=== PATIENT | female | born 1940 | race Caucasian/White ===

== ENCOUNTER 2019-11-10 12:00 | Inpatient (IN) | payer OTHER ==
[~2019-11-10] VITALS: Ht 157.5 cm; Wt 74.7 kg
[2019-11-10 13:04] LABS: BASOPHILS % (AUTO) 0.8 % (0.0-5.0); EOSINOPHILS % (AUTO) 3.1 % (0.0-8.0); HEMATOCRIT 40.2 % (36-48); MEAN CORPUSCULAR HEMOGLOBIN 30.6 pg (27.0-33.0); MEAN CORPUSCULAR HGB CONC 33.3 g/dL (32.0-36.0); MEAN CORPUSCULAR VOLUME 91.8 fL (79-99); MONOCYTES % (AUTO) 7.8 % (3.0-13.0); NEUTROPHILS % (AUTO) 67.9 % (40.0-77.0); PLATELET COUNT (AUTO) 290 K/uL (130-400); RED BLOOD CELL COUNT(AUTO) 4.38 MIL/uL (4.00-5.50); RED CELL DISTRIBUTION WIDTH 12.7 % (11.0-15.5); WHITE BLOOD COUNT (AUTO) 7.8 K/uL (4.8-10.8)
[2019-11-10 13:55] LABS: CREATININE 0.7 mg/dL (0.5-1.5); POTASSIUM 4.7 mmol/L (3.5-5.1)
[2019-11-17] MEDS ORDERED: ASPI-556 PO (09:47)
[2019-11-17] MEDS ORDERED: LOSA50TA64 PO (09:47)
[2019-11-17] MEDS ORDERED: ZINC50TA64 PO (09:47)
[2019-11-17] MEDS ORDERED: OMEP20TA25 PO (09:47)
[2019-11-17] MEDS ORDERED: TRAM50TA4 PO (09:47)
[2019-11-17] MEDS ORDERED: ESCI10TA54 PO (09:47)
[2019-11-17] MEDS ORDERED: TIOT4MIS3 IH (09:47)
[2019-11-17] MEDS ORDERED: LEVO25TA54 PO (09:47)
[2019-11-17] MEDS ORDERED: ASCO100031 PO (09:47)
[2019-11-18] VITALS (23 sets, daily range): BP systolic 80–130; BP diastolic 42–93
--- NOTE | 2019-11-18 06:15 | NUR ---
preop pt arrived via w/c. pt in no distress at this time. pt has some dry lesions to arms. pt oriented to call light and room. will continue to monitor pt.
[2019-11-18] MEDS ORDERED: LACTATED RINGERS 1000ML 1,000 ML IV ONE (06:17)
[2019-11-18] MEDS ORDERED: DURAMORPH PF1 MG/ML 10ML AMP IV ONE (06:49)
[2019-11-18] MEDS ORDERED: CEFAZOLIN SODIUM 1 GM VIAL ONE ×3 (06:49→11:41)
[2019-11-18] MEDS ORDERED: BUPIVACAINE/EPI/PF 0.25% 30ML VIAL IJ ONE (06:49)
[2019-11-18] MEDS ORDERED: THROMBIN-JMI 20000 UNIT KIT TP ONE (06:50)
[2019-11-18] MEDS ORDERED: LIDOCAINE PF 2% 5ML ABBOJECT ONE (06:54)
[2019-11-18] MEDS ORDERED: DEXAMETHASONE SOD PHOSPHATE 10MG/ML 1ML VIAL ONE ×2 (06:55→06:57)
[2019-11-18] MEDS ORDERED: MIDAZOLAM HCL 1 MG/ML 2ML VIAL ONE (06:55)
[2019-11-18] MEDS ORDERED: PROPOFOL 10 MG/ML 20ML VIAL IV ONE (06:55)
[2019-11-18] MEDS ORDERED: GLYCOPYRROLATE 1 MG/5 ML SYRINGE ONE (06:55)
[2019-11-18] MEDS ORDERED: NEOSTIGMINE 5MG/5ML SYR IV ONE (06:55)
[2019-11-18] MEDS ORDERED: FENTANYL CITRATE PF 50 MCG/1 ML 2ML VIAL ONE ×2 (06:56→09:42)
[2019-11-18] MEDS ORDERED: ONDANSETRON HCL 4 MG/2 ML VIAL ONE (06:56)
[2019-11-18] MEDS ORDERED: ROCURONIUM 10MG/1ML SYR 10 MG/ML ML ONE ×2 (06:56→09:10)
[2019-11-18] MEDS: CEFAZOLIN SODIUM 1 GM VIAL ONE ×2 (07:23→07:50)
[2019-11-18] MEDS ORDERED: EPHEDRINE SULFATE 50 MG/ML AMPULE ONE (07:51)
[2019-11-18] MEDS ORDERED: PHENYLEPHRINE HCL 10 MG/ML 1ML VIAL IV ONE (08:17)
[2019-11-18] MEDS ORDERED: SODIUM CHLORIDE 0.9% 10 ML VIAL ONE (10:47)
[2019-11-18] MEDS ORDERED: SODIUM CHLORIDE 0.9% 10 ML VIAL IVP PRN (12:00)
[2019-11-18] MEDS: DEXAMETHASONE SOD PHOSPHATE 4 MG/ML 1ML VIAL IVP SCH ×3 (12:00→23:59)
[2019-11-18] MEDS ORDERED: PROMETHAZINE HCL 25 MG/ML 1ML AMPULE IM PRN (12:00)
[2019-11-18] MEDS ORDERED: TRAMADOL HCL 50 MG TABLET PO PRN (12:00)
[2019-11-18] MEDS ORDERED: MORPHINE SULFATE 2 MG/ML 1ML SYG IVP PRN (12:00)
[2019-11-18] MEDS: LACTATED RINGERS 1000ML 1,000 ML IV SCH ×2 (13:56→18:39)
--- NOTE | 2019-11-18 16:22 | NUR ---
NOTIFIED RODY/DR. BURROUGHS OF POST OP BP SEE V/S RECORDED. PT ASYMPTOMATIC DENYING ANY DIZZINESS/DISCOMFORT. DENIED ANY PAIN/DISCOMFORT. ORDERS TO CONSULT HOSPITALIST IF NEEDED. AT 1640, DAUGHTER CAME OUT OF ROOM AND REPORTED PT C/O SOB. IN TO ASSESS PT. PT REPORTS SUDDEN LACK OF ENERGY. AC=448/71 HR=82. O2 SAT=99% W 02@2L/NC. RESP EVEN, UNLABORED. CONSULTED WITH HOSPITALIST. DR. MANSFIELD IN TO SEE PATIENT AND BP=93/63 WITH NEW ORDERS TO BOLUS. WILL CONTINUE TO MONITOR.
--- NOTE | 2019-11-18 18:00 | NUR ---
POST 500ML BOLUS BP=90/71 HR=65 WILL CONTINUE THE OTHER 500ML BOLUS PER MD ORDERS.
[2019-11-18] MEDS ORDERED: SODIUM CHLORIDE 0.9% 500ML 500 ML IV SCH ×2 (18:15→18:30)
--- NOTE | 2019-11-18 18:30 | NUR ---
BP=90/61 CONTINUED IV FLUIDS ASYMPTOMATIC. WILL CONTINUE TO MONITOR.
--- NOTE | 2019-11-18 19:15 | NUR ---
REPORT RECEIVED BEDSIDE REPORT FROM JADA BUSTILLOS. PT DENIES ANY PAINS AT THIS TIME. NEUROVASCULAR ASSESSMENT CONTINUED, WNL. WILL CONTINUE TO MONITOR. Addendum: 11/19/19 at 0040 by RADHA MCBRIDE RN RN Amended: Links added.
--- NOTE | 2019-11-18 19:45 | NUR ---
MEDS SHIFT ASSESSMENT DONE, PLEASE REFER TO CHART. PT CLAIMS OF NAUSEA BUT NO EMESIS. ICE CHIPS PROVIDED. MEDICATED WITH PHENERGAN IM. RE-POSITIONED COMFORTABLY IN BED WITH HOB ELEVATED. WILL RE-ASSESS PT. Addendum: 11/19/19 at 0057 by RADHA MCBRIDE RN RN Amended: Links added.
[2019-11-18] MEDS ORDERED: CEFAZOLIN SODIUM 1 GM VIAL IVP SCH (20:00)
[2019-11-18] MEDS ORDERED: NON-FORMULARY MEDICATION 1 EACH (Omeprazole 20 MG) PO SCH (21:00)
--- NOTE | 2019-11-18 21:00 | NUR ---
RE-ASSESS PT CLAIMS NAUSEA HAD ALREADY SUBSIDED. BP STILL WITH SBP ON THE 90'S BUT PT IS ASYMPTOMATIC. WILL CONTINUE TO MONITOR.
--- NOTE | 2019-11-19 02:00 | NUR ---
ROUNDS PT RESTING WELL, FAIRLY ASLEEP. NO DISTRESS NOTED. KEPT RESTED AND COMFORTABLE. CALL LIGHT WITHIN REACH. WILL MONITOR PT.
[2019-11-19 03:00] VITALS: BP 95/61
--- NOTE | 2019-11-19 04:05 | NUR ---
PAIN PT COMPLAINTS OF POST OP PAINS. MEDICATED WITH NORCO PO. RE-POSITIONED IN BED. WILL RE-ASSESS PT. Addendum: 11/19/19 at 0417 by RADHA MCBRIDE RN RN Amended: Links added.
[2019-11-19] MEDS: HYDROCODONE/ACETAMINOPHEN 5/325 MG TAB PO PRN ×2 (04:08→09:04)
--- NOTE | 2019-11-19 05:10 | NUR ---
D/C SALINE LOCKED PT'S IVF. TURNED OFF O2. DISCONTINUED F/C WITH CATHETER INTACT. INFORMED PT THAT SHE WILL BE WALKED ALREADY. PCP ASKED TO ACCOMPANY PT.
[2019-11-19] MEDS: DEXAMETHASONE SOD PHOSPHATE 4 MG/ML 1ML VIAL IVP SCH ×2 (05:38→11:21)
--- NOTE | 2019-11-19 05:45 | NUR ---
WALK PT ALREADY WALKED IN THE HALLWAY, TOLERATED ACTIVITY WELL. JUST CLAIMS OF MINIMAL SX INCISION PAIN WITH WALKING. ASSISTED BACK IN ROOM THEN DUE MEDS ADMINISTERED. LEFT SITTING DOWN IN CHAIR FOR NOW. CALL LIGHT WITHIN REACH. FOR MORE CARE.
[2019-11-19] MEDS ORDERED: LEVOTHYROXINE 25 MCG TABLET PO SCH (06:30)
--- NOTE | 2019-11-19 06:41 | NUR ---
WALK PT WALKED IN THE HALLWAY. TOLERATED ACTIVITY WITH MINIMAL HELP. CLAIM SOF MILD POST OP PAINS. ASSISTED BACK TO ROOM AND LET SIT DOWN IN THE CHAIR TO WAIT FOR BREAKFAST. FOR MORE CARE.
[2019-11-19 07:33] VITALS: BP 94/56
[2019-11-19] MEDS ORDERED: NON-FORMULARY MEDICATION 1 EACH (Ascorbic Acid (Vitamin C) 1,000 MG) PO SCH (09:00)
[2019-11-19] MEDS ORDERED: LOSARTAN 50 MG TABLET PO SCH (09:00)
[2019-11-19] MEDS ORDERED: OLODATEROL IH SCH (09:00)
[2019-11-19] MEDS ORDERED: NON-FORMULARY MEDICATION 1 EACH (Escitalopram Oxalate 10 MG) PO SCH (09:00)
[2019-11-19] MEDS ORDERED: [UNRECOGNIZED DRUG - OTHER] IH SCH (09:00)
[2019-11-19] MEDS ORDERED: PANTOPRAZOLE SODIUM 40 MG TABLET.DR PO SCH (09:00)
[2019-11-19] MEDS ORDERED: TIOTROPIUM BR IH SCH (09:00)
[2019-11-19] MEDS ORDERED: ESCITALOPRAM 10MG PO SCH (09:00)
[2019-11-19] MEDS ORDERED: ASCORBIC ACID 500 MG TAB PO SCH (09:00)
[2019-11-19] MEDS ORDERED: TIOTROPIUM IH SCH (09:00)
[2019-11-19] MEDS ORDERED: ZINC SULFATE 220 CAPSULE PO SCH (09:00)
[2019-11-19] MEDS ORDERED: OLODATEROL HCL IH SCH (09:00)
[2019-11-19] MEDS ORDERED: ZINC AMINO ACID CHELATE PO SCH (09:00)
[2019-11-19] MEDS ORDERED: ASPIRIN 81 MG EC TAB PO SCH (09:00)
--- NOTE | 2019-11-19 11:00 | NUR ---
DISCHARGE INSTRUCTIONS GIVEN AND EXPLAINED UTILIZING TEACH BACK METHOD, PT VERBALIZED UNDERSTANDING. PT WILL WAIT FOR HER DAUGHTER TO PICK HER UP.
--- NOTE | 2019-11-19 12:55 | NUR ---
DETAILED CM ASSESSMENT DEFERRED, SCHEDULE PROCEDURE NO TRIGGERS TO CM , NO CONCERNS VOICED BY /TO RN , FAMILY AT BEDSIDE FOR TRANSPORT Addendum: 11/19/19 at 1256 by SUMEET CASTLE RN CM Amended: Links added.
== END 2019-11-19 13:00 | disposition home or self-care (01) | DRG 460 ==
LOC: EDSTATUS 12:00 → DAHIP 11-18 05:51 → 3AH 11-18 13:00
PROVIDERS: ADMIT Neurological Surgery; ATTEND Neurological Surgery
PROC: 0SG0071 Fusion of Lumbar Vertebral Joint with Autologous Tissue Substitute, Posterior Approach, Posterior Column, Open Approach (ICD-10-PCS; principal; 2019-11-18 08:05)
PROC: 4A11X4G Monitoring of Peripheral Nervous Electrical Activity, Intraoperative, External Approach (ICD-10-PCS; 2019-11-18 08:05)
DX: M48.061 Spinal stenosis, lumbar region without neurogenic claudication (principal); M43.16 Spondylolisthesis, lumbar region; I95.81 Postprocedural hypotension; J44.9 Chronic obstructive pulmonary disease, unspecified; K21.9 Gastro-esophageal reflux disease without esophagitis; I10 Essential (primary) hypertension; M41.9 Scoliosis, unspecified; F32.9 Major depressive disorder, single episode, unspecified; E03.9 Hypothyroidism, unspecified; Z96.651 Presence of right artificial knee joint; Z87.891 Personal history of nicotine dependence; Z90.49 Acquired absence of other specified parts of digestive tract; Z88.8 Allergy status to other drugs, medicaments and biological substances; Z83.3 Family history of diabetes mellitus; Z82.49 Family history of ischemic heart disease and other diseases of the circulatory system
CPT/HCPCS: 36415; 71045; 72110; 80048; 85025; A4344; G0378; J0690; J1100; J2001; J2250; J2274; J2370; J2405; J2550; J2704; J2710; J3010; J3490; J7030; J7120

== ENCOUNTER → 2019-12-15 | Outpatient (CLI) | payer OTHER | END | disposition home or self-care (01) | LOC: OIH 09:46 | PROVIDERS: ATTEND Neurological Surgery | DX: M47.817 Spondylosis without myelopathy or radiculopathy, lumbosacral region (principal); M43.27 Fusion of spine, lumbosacral region ==

== ENCOUNTER → 2020-04-12 | Outpatient (CLI) | payer OTHER ==
[~2020-04-12] MED LIST: ASCO100031 PO; ASPI-556 PO; ESCI10TA54 PO; LEVO25TA54 PO; LOSA50TA64 PO; OMEP20TA25 PO; TIOT4MIS3 IH; TRAM50TA4 PO; ZINC50TA64 PO
== END | disposition home or self-care (01) ==
LOC: OIH 09:03
PROVIDERS: ATTEND Neurological Surgery
DX: M51.36 Other intervertebral disc degeneration, lumbar region (principal); M25.78 Osteophyte, vertebrae; M48.061 Spinal stenosis, lumbar region without neurogenic claudication
CPT/HCPCS: 72100

== ENCOUNTER → 2021-01-14 | Outpatient (CLI) | payer OTHER ==
[~2021-01-14] MED LIST changes: +ESCI-8 PO; -ESCI10TA54 PO
== END | disposition home or self-care (01) ==
LOC: LAB 11:04
PROVIDERS: ATTEND Family Medicine
DX: M43.16 Spondylolisthesis, lumbar region (principal); M48.07 Spinal stenosis, lumbosacral region
CPT/HCPCS: 72110